=== PATIENT | female | born 1975 | race Caucasian/White ===

== ENCOUNTER 2020-05-18 06:45 | Emergency (ER) | payer SELFPAY ==
[~2020-05-18] VITALS: Ht 170.2 cm; Wt 90.2 kg
[2020-05-18 06:55] VITALS: BP 156/83
[2020-05-18] MEDS ORDERED: ACETAMINOPHEN 325 MG TABLET ONE (07:27)
[2020-05-18] MEDS ORDERED: ACETAMINOPHEN 650 MG/20.3 ML UDC PO PRN (07:30)
[2020-05-18] MEDS ORDERED: ACETAMINOPHEN 650 MG/20.3 ML UDC ONE (07:34)
== END 2020-05-18 08:45 | disposition home or self-care (01) ==
LOC: ED 07:53
DX: A53.9 Syphilis, unspecified (principal); R21 Rash and other nonspecific skin eruption
CPT/HCPCS: 99282